=== PATIENT | female | born 1985 | race Caucasian/White ===

== ENCOUNTER 2017-11-18 09:23 | Emergency (ER) | payer OTHER | END 2017-11-18 12:36 | disposition home or self-care (01) | LOC: ERS 09:23 | DX: J11.1 Influenza due to unidentified influenza virus with other respiratory manifestations (principal); Z87.891 Personal history of nicotine dependence | CPT/HCPCS: 99406 ==

== ENCOUNTER 2021-09-05 10:32 | Outpatient (CLI) | payer BC | END 2021-09-05 10:33 | disposition home or self-care (01) | LOC: BICRAD 10:32 | PROVIDERS: ATTEND Preventive Medicine Occupational Medicine | DX: S00.93XA Contusion of unspecified part of head, initial encounter (principal) | CPT/HCPCS: 70150 ==